=== PATIENT | male | born 1950 | race Caucasian/White ===

== ENCOUNTER → 2017-07-15 | Outpatient (CLI) | payer MEDICARE, BC ==
--- NOTE | ~2017-07-15 | EE ---
Unit #: [id number] #: [id number] Patient: JESE NARANJO [id number] [address] [address] [id number] O MR#: [id number] NAME: JESE NARANJO : 1950 SEX: M STUDY DATE/TIME: 07/15/2017 UNIT: CEEG ROOM: STUDY DESCRIPTION: EEG Attending Physician: Amaya Rodriges M.D. Referring Physician: Amaya Rodriges M.D. Primary Care Physician: Radha Lentz M.D. NEURODIAGNOSTICS REPORT EXAM EEG REASON FOR STUDY Seizures. TECH NoRedInk TECHNICAL INFORMATION This is a routine EEG performed using the standard International 10-20 System of electrode placement. Photic stimulation was performed. Hyperventilation was also performed. REPORT Throughout the entire study, the best background rhythm seen is approximately 9-10 Hz. This rhythm is seen in both posterior head regions symmetrically and does attenuate to eye opening and closure. Hyperventilation was performed which did not elicit any abnormal buildup. Photic stimulation was also performed which did not elicit any epileptiform abnormalities. However, a good photic driving response was seen. Throughout the entire study, there were no electrographic seizures recorded nor were there any independent epileptiform abnormalities seen. There was no sleep recorded during the EEG. Dictated by... Kal Fraser II., M.D. GWS/ts TD: 07/25/2017 13:03 JOB #: [id number] Unit #: [id number] #: [id number] Patient: JESE NARANJO NEURODIAGNOSTICS REPORT Page 1 of 1 X NEURODIAGNOSTICS REPORT
--- NOTE | ~2017-07-15 | MR17 ---
[facility] A Service of [facility] RADIOLOGY TEXT RESULTS PATIENT: JESE NARANJO LOCATION: CEEG : 54 UNIT #: [id number] AGE: [address]: AMAYA KING SEX: M ORDER DR: [id number] [facility] [address] [place], [place] [address] [id number] O MR#: [id number] Acc #: [id number] NAME: JESE NARANJO : 1950 SEX: M STUDY DATE/TIME: 07/15/2017 14:03 UNIT: CEEG ROOM: STUDY DESCRIPTION: MR Brain WWo Contrast Attending Physician: Amaya King M.D. Referring Physician: Amaya King M.D. Ordering Physician: Physician Non-Staff Primary Care Physician: Radha Lentz M.D. MRI CENTER REPORT This report is preliminary unless electronic signature is present. EXAM Brain MRI with/without HISTORY Memory loss and chronic headaches for many years with syncopal episodes for 2 years, last syncopal episode was a month ago. No history of seizure, per patient. COMMENTS MRI of the brain was performed prior to and following intravenous administration of 16 mL of MultiHance. 1.5T imaging technique utilized. There is a head CT for comparison and MRI for comparison from 09/04/2014. There is no evidence for a recent ischemic insult on the diffusion series. There is no Chiari I malformation. There is no MRI evidence for intracranial hemorrhage. No extraaxial fluid collection. Small amount of fluid or inflammatory change mastoid air cells. The major intracranial flow voids are maintained. Paranasal sinuses are clear. Patient has had cataract surgery bilaterally. Mild white matter signal abnormality is nonspecific but probably due to small vessel disease in age group. On comparison to prior, it has not significantly changed allowing for technical differences. Patient has had cataract surgery bilaterally. There is no evidence for mesial temporal sclerosis. There is an encephalomalacic area seen in the right frontal lobe inferiorly anteriorly. In this location, it is most likely the result of a remote closed-head injury. Please correlate with history. Area of malacia is about 1.9 cm AP dimension, 1 cm ML dimension, and 0.8 cm SI dimension. This is a potential seizure focus and please correlate with the EEG findings. Following contrast administration, there is no pathologic intracranial enhancement. There is no intracranial mass lesion or mass effect. [facility] A Service of [facility] RADIOLOGY TEXT RESULTS PATIENT: JESE NARANJO LOCATION: CEEG : 54 UNIT #: [id number] AGE: [address]: AMAYA KING SEX: M ORDER DR: IMPRESSION 1. There is a focus of encephalomalacia seen right frontal lobe anteriorly inferiorly which, given location, is probably the result of a remote closed-head injury. This is a potential seizure focus and please correlate with any EEG abnormalities. 2. Mild probable sequelae of small vessel disease not significantly changed from 09/04/2014. 3. No evidence for a recent ischemic insult on the diffusion series. No evidence for intracranial mass lesion, mass effect or pathologic intracranial enhancement. Dictated by... Abiola Castro M.D. THIS IS AN ELECTRONICALLY VERIFIED REPORT Abiola Castro M.D. at 07/15/2017 11:32 PM HAYLEE/sugar TD: 07/15/2017 20:14 JOB #: [id number] MRI CENTER REPORT Page 1 of 1 COPY
[2017-07-15 13:21] LABS: THYROID STIMULATING HORMONE 1.99 uIU/ml (0.34-5.60)
[2017-07-15 13:28] LABS: FREE THYROXIN (T4) 0.75 ng/dL (0.58-1.64)
[2017-07-15 13:36] LABS: FOLATE (FOLIC ACID) 10.2 ng/mL (>5.8)
[2017-07-15 14:06] LABS: POC - CREATININE 1.35 mg/dL (0.64-1.27)
== END | disposition home or self-care (01) ==
LOC: CLAB 11:21 → CEEG 11:21
PROVIDERS: Internal Medicine Sleep Medicine
DX: R41.3 Other amnesia (principal); R55 Syncope and collapse; G93.89 Other specified disorders of brain
CPT/HCPCS: 36415; 70553; 82565; 82607; 82746; 83090; 83921; 84439; 84443; 95816; A9577